=== PATIENT | male | born 1985 | race Caucasian/White ===

== ENCOUNTER 2020-12-02 17:25 | Emergency (ER) | payer OTHER, SELFPAY ==
[2020-12-02 19:09] VITALS: BP 115/79; PULSE 87; RESP 18; TEMP 37.1; O2SAT 100; BMI 22.0
[2020-12-02 21:57] LABS: MANUAL DIFF FLAG NO
[2020-12-02 21:58] LABS: Basophils Percent Auto 0.3 % (0-2); Eosinophils Percent Auto 0.5 % (0-4); Hematocrit 43.6 % (42-52); Hemoglobin 14.8 g/dl (14.0-18.0); Imm Gran Abs Auto 0.02 X10*3/uL (0.00-0.03); Imm Gran Pct Auto 0.3 % (0.0-0.4); Lymphocytes Absolute Auto 1.3 X10*3/uL (1.2-4.9); Lymphocytes Percent Auto 20.9 % (20-40); Mean Corpuscular HGB Conc 33.9 g/dl (31.0-36.0); Mean Corpuscular Volume 88.3 fL (80-98); Mean Platelet Volume 9.9 fL (9.4-12.4); Monocytes Absolute Auto 0.4 X10*3/uL (0.1-1.2); Monocytes Percent Auto 5.7 % (2-11); Neutrophils Absolute Auto 4.6 X10*3/uL (2.0-8.3); Neutrophils Percent Auto 72.3 % (45-73); Platelet Count 224 X10*3/uL (160-400); Red Blood Count 4.94 X10*6/uL (4.60-5.80); Red Cell Distribution Width 12.2 % (11.0-16.0); White Blood Count 6.3 X10*3/uL (4.8-10.8)
[2020-12-02 22:16] LABS: COVID-19 Test Negative (Negative); IDNOW Serial# 9DD0AD1C
[2020-12-02 22:20] LABS: Alanine Aminotransferase 11 U/L (0-40); Albumin Level 4.6 g/dL (3.5-5.0); Alkaline Phosphatase 96 U/L (39-117); Anion Gap 13 (12-20); Aspartate Amino Transferase 15 U/L (5-37); Bilirubin Total 0.3 mg/dL (0.0-1.0); Blood Urea Nitrogen 11 mg/dL (9-16); Calcium 9.3 mg/dL (8.4-10.2); Carbon Dioxide 28 mmol/L (22-29); Chloride 104 mmol/L (96-108); Creatinine Clr Calc Pharmacy 98.8; Estimated Glomerular Filt Rate > 60; Glucose Random 102 mg/dL (60-115); Potassium 3.7 mmol/L (3.3-5.1); Sodium 141 mmol/L (135-145)
--- NOTE | 2020-12-02 22:28 | ED.NAVMDI ---
HPI - Nausea/Vomiting/Diarrhea General Chief complaint: Nausea/Vomiting/Diarrhea Stated complaint: DIARRHEA Time Seen by Provider: 12/02/20 21:35 Source: patient Mode of arrival: ambulatory Limitations: no limitations History of Present Illness HPI Narrative: 35 yo male with no significant medical history presenting to the ER with 1 week of intermittent diarrhea. Up to 7 episodes per day. Today he develops some cramping before and during his bowel movement which was new. He came to the ER for evaluation. His young son also had a day of diarrhea and a URI but it resolved quickly. Patient had a cold about a week and half about without any GI symptoms at the time. He denies any residual URI symptoms. No current abdominal pain. No urinary symptoms, vomiting, fever, or chills. Last episode of diarrhea was earlier today, he took Pepto Bismol which seemed to have help his symptoms. MD elicited complaint: diarrhea and abdominal pain Onset (ago): day(s) (7) Description of vomiting: food contents and watery Description of diarrhea: watery Associated nausea: No Associated abdominal pain: Yes Location of pain: periumbilical Pain consistency: intermittent and now resolved Severity: moderate Quality: cramping Exacerbating factors: bowel movement Context: sick contacts Associated symptoms: denies other symptoms Treatment prior to arrival: other OTC medicine Related Data Allergies Allergy/AdvReac Type Severity Reaction Status Date / Time Seasonal Allergies Allergy Nasal Verified 12/02/20 19:16 congestion Review of Systems Review of Systems: Constitutional: No Fever, No Chills ENT/Mouth: No sore throat, No Rhinorrhea, No Swallowing Difficulty Cardiovascular: No Chest Pain, No SOB Respiratory: No Cough, No Sputum Gastrointestinal: No Nausea, No Vomiting, + Diarrhea, + abdominal Pain, No Hematochezia, No Melena Genitourinary: No Dysuria, No Urinary Frequency, No Hematuria Musculoskeletal: No joint pain, No Myalgias Skin: No Skin Lesions, No rash Neuro: No Weakness, No Numbness, No Dizziness, No Headache Psych: No Anxiety/Panic, No Depression Heme/Lymph: No Bruising, No Lymphadenopathy Gastrointestinal: Gastrointestinal: Denies nausea PMFSH Past Medical History Medical History Deviated septum Nasal fracture Social History Social History Advance Directives: No Advance Directives Information Provided: No Physical Exam Vital Signs: Vital Signs: Last Vital Signs Temp 98.7 F 12/02/20 19:09 Pulse 87 12/02/20 19:09 Resp 18 12/02/20 19:09 BP 115/79 12/02/20 19:09 Pulse Ox 100 12/02/20 19:09 Body Mass Index 22.0 Appearance: Alert. Oriented X3. No acute distress. Eyes: Pupils equal, round and reactive to light. ENT: Pharynx normal. Neck: Normal inspection. Neck supple. CVS: Normal heart rate and rhythm. Pulses normal. Respiratory: No respiratory distress. Breath sounds normal. Abdomen: Soft and nontender. +BS x4 Skin: Skin warm and dry. Normal skin color. Normal skin turgor. No rashes. Extremities: No lower extremity edema. Neuro: Oriented X 3. No motor deficit. No sensory deficit. Course Course Course Narrative: 35 y/o healthy male presenting with diarrhea for the last 1 week, today associated with abdominal cramping. No blood in his stool. No current abdominal pain or tenderness. He is vitally stable. Labs are within normal limits. He has been in the ER waiting room for several hours without any episodes of diarrhea. He is feeling better. At this time he is stable for discharge home with supportive care and outpatient follow up. Discussed pepto and imodium. Patient agrees with plan and will return to the ER if symptoms worsen. MDM - Nausea/Vomiting/Diarrhea Lab Data Result diagrams: 12/02/20 21:51 12/02/20 21:51 Labs: Lab Results 12/02/20 12/02/20 12/02/20 Range/Units 21:51 21:51 21:51 WBC 6.3 (4.8-10.8) X10*3/uL RBC 4.94 (4.60-5.80) X10*6/uL Hgb 14.8 (14.0-18.0) g/dl Hct 43.6 (42-52) % MCV 88.3 (80-98) fL MCH 30.0 (27.0-33.0) pg MCHC 33.9 (31.0-36.0) g/dl RDW 12.2 (11.0-16.0) % Plt Count 224 (160-400) X10*3/uL MPV 9.9 (9.4-12.4) fL Immature Gran % (Auto) 0.3 (0.0-0.4) % Neut % (Auto) 72.3 (45-73) % Lymph % (Auto) 20.9 (20-40) % [place] % (Auto) 5.7 (2-11) % Eos % (Auto) 0.5 (0-4) % Baso % (Auto) 0.3 (0-2) % Lymph # (Auto) 1.3 (1.2-4.9) X10*3/uL [place] # (Auto) 0.4 (0.1-1.2) X10*3/uL Eos # (Auto) 0.0 (0.0-0.4) X10*3/uL Baso # (Auto) 0.0 (0.0-0.2) X10*3/uL Abs Immat Gran (auto) 0.02 (0.00-0.03) X10*3/uL Absolute Neuts (auto) 4.6 (2.0-8.3) X10*3/uL Absolute Nucleated RBC 0.000 (0.0-0.012) X10*3/uL Nucleated RBC % (auto) 0.0 (0.0-0.2) /100WBC Sodium 141 (135-145) mmol/L Potassium 3.7 (3.3-5.1) mmol/L Chloride 104 (96-108) mmol/L Carbon Dioxide 28 (22-29) mmol/L Anion Gap 13 (12-20) BUN 11 (9-16) mg/dL Creatinine 0.97 (0.5-1.4) mg/dL Estim Creat Clear Calc 98.8 Estimated GFR > 60 Random Glucose 102 (60-115) mg/dL Calcium 9.3 (8.4-10.2) mg/dL Total Bilirubin 0.3 (0.0-1.0) mg/dL AST 15 (5-37) U/L ALT 11 (0-40) U/L Alkaline Phosphatase 96 (39-117) U/L Total Protein 7.0 (6.5-8.0) g/dL Albumin 4.6 (3.5-5.0) g/dL COVID-19 ([facility]) Negative (Negative) COVID-19 Clin Com See Note Discharge Plan Discharge Clinical Impression: Diarrhea Patient Disposition: Home, Self-Care Instructions: Acute Diarrhea (ED) Additional Instructions: Your lab workup today was normal. Recommend rest and increasing your fluid intake. Recommend Pepto Mismol as needed for upset stomach and diarrhea. Recommend trial of Imodium 2-4 mg as needed for loose stool Stick to a bland diet while you are feeling unwell Follow up with your doctor as needed If you develop new or worsening symptoms call 911 or come back to the ER for further evaluation. Interventions: ED Discharge Assessment Last Done: 12/02/20 23:51 Discharge Date/Time: 12/02/20 23:52
== END 2020-12-02 23:52 | disposition home or self-care (01) ==
PROVIDERS: Physician Assistant; Emergency Provider Student in an Organized Health Care Education/Training Program
DX: R19.7 Diarrhea, unspecified (principal); Z20.822 Contact with and (suspected) exposure to COVID-19
CPT/HCPCS: 36415; 80053; 85025; 87635; 99283